=== PATIENT | male | born 1960 | race Caucasian/White ===

== ENCOUNTER 2016-11-28 17:08 | Emergency (ER) | payer MEDICARE, OTHER ==
[2016-11-28 18:54] VITALS: BP 134/84
--- NOTE | 2016-11-28 19:23 | UC ---
Skin Complaint HPI - HPI Summary HPI Summary: FIVE DAYS AGO HAD INSECT BITE ON LEFT (MEDIAL) LEG. HAD BEEN ITCHING INJURY. TODAY LEG IS WARM RED AND SEEMS TO BE SPREADING FROM SOURCE OF BITE. NO FEVER. - History of Current Complaint Chief Complaint: UCSkin Time Seen by Provider: 11/28/16 18:46 Stated Complaint: SPIDER BITE Hx Obtained From: Patient, Family/Occupational Therapy Technician Onset/Duration: Gradual Onset, Lasting Days, Still Present Skin Exposure Onset/Duration: Days Ago Onset Severity: Mild Current Severity: Moderate Location: Discrete - MEDIAL LEFT DISTAL LEG Aggravating: Touch Alleviating: Nothing Associated Signs & Symptoms: Positive: Tenderness - LEFT MEDIAL LEG, Red Streaks. Negative: Nausea, Vomiting, Difficulty Breathing, Fever, Chills, Cough , Wheezing, Chest Pain, Hoarseness, Throat Tightening Related History: Insect Bite/Sting, Possible Reaction to: Insect - Allergy/Home Medications Allergies/Adverse Reactions: Allergies Allergy/AdvReac Type Severity Reaction Status Date / Time No Known Allergies Allergy Verified 03/02/15 13:55 Review of Systems Constitutional: Negative Skin: Rash - LEFT DISTAL MEDIAL LEG Eyes: Negative ENT: Negative Respiratory: Negative Cardiovascular: Negative Gastrointestinal: Negative Genitourinary: Negative Motor: Negative Neurovascular: Negative Musculoskeletal: Negative - NEGATIVE HOMANS Neurological: Negative Psychological: Negative All Other Systems Reviewed And Are Negative: Yes PMH/Surg Hx/FS Hx/Imm Hx Previously Healthy: Yes Endocrine History Of: Denies: Diabetes - Surgical History Surgical History: Yes Surgery Procedure, Year, and Place: Knee and Back; left shoulder replacement - Family History Known Family History: Positive: Respiratory Disease - TOBACCO ABUSE - Social History Occupation: Disabled Lives: With Family Alcohol Use: None Substance Use Type: Marijuana Smoking Status (MU): Heavy Every Day Tobacco Smoker Cessation Counseling: Counseled 3+Min - 10 Min - Immunization History Most Recent Influenza Vaccination: 2013 Most Recent Tetanus Shot: 2004 Most Recent Pneumonia Vaccination: NEVER Physical Exam Triage Information Reviewed: Yes Appearance: Well-Appearing, No Pain Distress, Well-Nourished Vital Signs: Initial Vital Signs Temp 98.2 F 11/28/16 18:47 Pulse 69 11/28/16 18:47 Resp 18 11/28/16 18:47 BP 134/84 11/28/16 18:47 Pulse Ox 94 11/28/16 18:47 Vital Signs Reviewed: Yes Eye Exam: Normal Eyes: Positive: Conjunctiva Clear ENT Exam: Normal ENT: Positive: Normal ENT inspection, Hearing grossly normal, Pharynx normal, TMs normal Dental Exam: Normal Neck exam: Normal Neck: Positive: Supple, Nontender, No Lymphadenopathy Respiratory Exam: Normal Respiratory: Positive: Chest non-tender, Lungs clear, Normal breath sounds, No respiratory distress Cardiovascular Exam: Normal Cardiovascular: Positive: RRR, No Murmur, Pulses Normal, Brisk Capillary Refill Abdominal Exam: Normal Abdomen Description: Positive: Nontender, No Organomegaly Musculoskeletal Exam: Normal Musculoskeletal: Positive: Strength Intact, ROM Intact Neurological Exam: Normal Psychological Exam: Normal Psychological: Positive: Normal Response To Family Skin: Positive: Other - ERRETEMATOUS STREAKING SURROUNDING DARKER ELEVATED EXCORIATED REGION 2CM X 2CM Course/Dx - Differential Diagnoses - Skin Complaint Differential Diagnoses: Cellulitis, Contact Dermatitis, Impetigo, MRSA - Diagnoses Provider Diagnoses: LEFT LEG CELLULITIS. INSECT BITE LEFT MEDIAL LEG. TOBACCO ABUSE Discharge - Discharge Plan Condition: Stable Disposition: HOME Prescriptions: Cephalexin CAP* [Keflex CAP*] 500 mg PO QID #40 cap Patient Education Materials: How to Stop Smoking (ED), Cellulitis (ED) Referrals: Heriberto Gallegos MD [Medical Doctor] - [facility] [employer] RISK AND ASSURANCE MANAGER,Mary [Primary Care Provider] - Images Front/Back of Body, Lg ([place]): 1 - INSECT BITE AND SURROUNDING ERRETHEMA HERE
== END 2016-11-28 19:15 | disposition home or self-care (01) ==
LOC: UCEAST 17:08
DX: S80.862A Insect bite (nonvenomous), left lower leg, initial encounter (principal); L03.116 Cellulitis of left lower limb; F17.210 Nicotine dependence, cigarettes, uncomplicated
CPT/HCPCS: 99212; G0463

== ENCOUNTER 2017-07-28 14:59 | Emergency (ER) | payer MEDICARE, OTHER ==
[2017-07-28] MEDS ORDERED: oxyCODONE/Acetamin 5/325 MG* TAB PO ONE (16:37)
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
[2017-07-28] MEDS ORDERED: Amoxicillin/Clavulanate TAB* 875 MG PO ONE (17:51)
[2017-07-28 18:03] VITALS: BP 146/90
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
== END 2017-07-28 18:04 | disposition home or self-care (01) ==
LOC: ED 14:59
DX: S02.2XXA Fracture of nasal bones, initial encounter for closed fracture (principal); R51 Headache; W30.89XA Contact with other specified agricultural machinery, initial encounter; Y93.89 Activity, other specified; Y92.89 Other specified places as the place of occurrence of the external cause; F17.210 Nicotine dependence, cigarettes, uncomplicated
CPT/HCPCS: 70450; 70486; 99282; A9270-GY

== ENCOUNTER 2017-09-25 11:36 | Emergency (ER) | payer OTHER ==
[2017-09-25 13:22] VITALS: BP 140/94
--- NOTE | 2017-09-25 13:36 | UC ---
Shoulder Pain HPI - HPI Summary HPI Summary: 57 year old male with shoulder pain. c/o L shoulder pain that started 4 days ago. Denies any injury. Had total shoulder replacement 2 years ago. He called ortho and they advised to come here for xrays . Was cutting wood recently and that may have aggravated this . Pain in the shoulder and feels like rotator cuff. Taking his hydro for his back pain for the shoulder. Had replacement 2 years ago Nov . [ End ] - History of Current Complaint Chief Complaint: UCUpperExtremity Stated Complaint: LEFT SHOULDER COMPLAINT Time Seen by Provider: 09/25/17 13:34 Hx Obtained From: Patient Onset/Duration: Gradual Onset Timing: Constant Character: Stiffness Aggravating Factor(s): Movement Alleviating Factor(s): Rest Related History: Similar Episode/Dx As - Allergies/Home Medications Allergies/Adverse Reactions: Allergies Allergy/AdvReac Type Severity Reaction Status Date / Time No Known Allergies Allergy Verified 09/25/17 13:17 PMH/Surg Hx/FS Hx/Imm Hx Previously Healthy: Yes Endocrine History: Dyslipidemia GI/ History: Gastroesophageal Reflux - Surgical History Surgical History: Yes Surgery Procedure, Year, and Place: Knee and Back; left shoulder replacement - Family History Known Family History: Positive: Respiratory Disease - TOBACCO ABUSE - Social History Occupation: Employed Full-time Lives: With Family Alcohol Use: None Substance Use Type: None Smoking Status (MU): Current Some Day Smoker Type: Cigarettes Amount Used/How Often: occasional Have You Smoked in the Last Year: Yes Cessation Counseling: Patient Advised to Stop - Immunization History Most Recent Influenza Vaccination: 2013 Most Recent Tetanus Shot: 2004 Most Recent Pneumonia Vaccination: NEVER Review of Systems Musculoskeletal: Arthralgia, Decreased ROM Is Patient Immunocompromised?: No All Other Systems Reviewed And Are Negative: Yes Physical Exam Triage Information Reviewed: Yes Appearance: Well-Appearing, Pain Distress - mild Vital Signs: Initial Vital Signs Temp 98.7 F 09/25/17 13:17 Pulse 70 09/25/17 13:17 Resp 20 09/25/17 13:17 BP 140/94 09/25/17 13:17 Vital Signs Reviewed: Yes Respiratory Exam: Normal Cardiovascular Exam: Normal Musculoskeletal: Positive: Strength Limited @, ROM Limited @ - pain with flexion and extension. As well as abduction at the anterior shoulder. normal C spine eval no sp tenderness. normal wrist and elbow exam. strength in hands 5/ 5. sensation intact. cap refill < 3 sec and peripheral pulses brisk Diagnostics - Laboratory Diagnostic Studies Completed/Ordered: IMPRESSION: STATUS POST TOTAL LEFT SHOULDER REPLACEMENT SURGERY. NO EVIDENCE FOR ACUTE. FINDING. IF THE PATIENT'S SYMPTOMS RECOMMEND ORTHOPEDIC REFERRAL. Shoulder Course/Dx - Course Course Of Treatment: f/u with ortho [facility] - Differential Dx/Diagnosis Differential Diagnosis/HQI/PQRI: Rotator Cuff Injury Provider Diagnoses: Shoulder pain/ rotator cuff tendonitis left. 2) elevated BP due to setting in UC and in pain Discharge - Discharge Plan Condition: Good Disposition: HOME Patient Education Materials: Shoulder Pain (ED) Referrals: Heriberto Gallegos MD [Primary Care Provider] - If Needed (Please follow up with your orthopedic CARMELLA as well please )
--- NOTE | 2017-09-25 14:28 | RAD ---
INDICATION: Left shoulder pain. COMPARISON: Comparison is made with a prior x-ray study of the left shoulder from March 08, 2015. TECHNIQUE: 4 views of the left shoulder were obtained. FINDINGS: The patient is status post total left shoulder replacement surgery. The bones appear to be normal in alignment. The prostheses appear intact. There is no gross evidence for loosening. No fracture is seen. IMPRESSION: STATUS POST TOTAL LEFT SHOULDER REPLACEMENT SURGERY. NO EVIDENCE FOR ACUTE FINDING. IF THE PATIENT'S SYMPTOMS RECOMMEND ORTHOPEDIC REFERRAL.
== END 2017-09-25 14:44 | disposition home or self-care (01) ==
LOC: UCCORT 11:36
DX: M25.512 Pain in left shoulder (principal); M75.92 Shoulder lesion, unspecified, left shoulder; R03.0 Elevated blood-pressure reading, without diagnosis of hypertension; E78.5 Hyperlipidemia, unspecified; K21.9 Gastro-esophageal reflux disease without esophagitis; Z96.612 Presence of left artificial shoulder joint; Z72.0 Tobacco use
CPT/HCPCS: 99212; G0463